=== PATIENT | male | born 1955 | race Caucasian/White ===

== ENCOUNTER → 2025-03-28 11:09 | Outpatient (BNVA) | payer OTHER, SELFPAY | PROVIDERS: Referring Provider Nurse Practitioner Family; Visit Provider Psychiatry & Neurology Neurology | DX: Z86.12 Personal history of poliomyelitis (principal); G25.2 Other specified forms of tremor; A80.9 Acute poliomyelitis, unspecified; Z98.890 Other specified postprocedural states; R29.818 Other symptoms and signs involving the nervous system; M79.609 Pain in unspecified limb | CPT/HCPCS: 36415; 82607; 82746; 83735; 83921; 84207; 84425; 84439; 84443; 84591; 85025; 99203 ==

== ENCOUNTER 2025-04-03 13:32 | Outpatient (CLI) | payer OTHER, SELFPAY ==
--- NOTE | 2025-04-03 13:45 | MR_ITS ---
WS: [id number] MRI BRAIN WITH AND WITHOUT CONTRAST HISTORY: G25.2 - Other specified forms of tremor COMPARISON: None available. TECHNIQUE: Multiplanar imaging performed through the brain with MultiHance 20 ml's IV. No acute infarcts are seen. Gutierrez-white matter differentiation is well preserved. Mild scattered T2 and FLAIR signal hyperintensities in the supratentorial white matter. Mild bilateral small vessel disease in the atul. Mild bilateral hippocampal atrophy. Symmetric bilateral cerebral atrophy. There is also mild cerebellar atrophy. Lacunar infarct in the LEFT nick radiata. Ventricles and extra-axial spaces are normal. Clivus and pituitary gland are normal. Visualized posterior fossa and brainstem are also normal. Postcontrast images are negative for masses or vascular malformations. Dural venous sinuses are normal. Paranasal sinuses: Well aerated with no significant disease. Mastoid air cells: Normal. Calvarium and scalp: Normal. MR/MR head wo/w con [id number] IMPRESSION: 1. No acute infarct, hemorrhage or enhancing mass. 2. Mild cerebral and cerebellar atrophy. 3. Mild small vessel changes in the supratentorial white matter and bilaterall y within the atul. 4. Lacunar infarct LEFT nick radiata.
[2025-04-03] MEDS: gadobenate dimeglumine 20 mL vial IV (14:18)
== END 2025-04-03 13:33 | disposition home or self-care (01) ==
LOC: RAD 13:33
PROVIDERS: Visit Provider Psychiatry & Neurology Neurology
DX: G25.2 Other specified forms of tremor (principal)
CPT/HCPCS: 70553